=== PATIENT | female | born 1950 ===

== ENCOUNTER 2021-05-13 14:34 | Outpatient (CLI) | payer MEDICARE, MEDICAID ==
[~2021-05-13] VITALS: Ht 157.5 cm; Wt 59.0 kg
[2021-05-13] MEDS ORDERED: MOBIC 7.5MG7.5 MG (15:08)
[2021-05-13] MEDS ORDERED: LIPITOR 40MG TA40 MG (15:08)
[2021-05-13 15:42] VITALS: BP 150/80; PULSE 65; TEMP 98.4
== END 2021-05-13 15:54 | disposition home or self-care (01) ==
LOC: EUO 14:34
DX: M16.12 Unilateral primary osteoarthritis, left hip (principal)
CPT/HCPCS: J0897

== ENCOUNTER 2021-12-09 16:06 | Outpatient (CLI) | payer MEDICARE, MEDICAID ==
[~2021-12-09] VITALS: Ht 157.5 cm; Wt 59.9 kg
[~2021-12-09 16:06] MED LIST: LIPITOR 40MG TA40 MG; MOBIC 7.5MG7.5 MG
[2021-12-09 16:35] VITALS: BP 132/75; PULSE 76; TEMP 98
== END 2021-12-09 17:21 ==
LOC: EUO 16:06
DX: M81.0 Age-related osteoporosis without current pathological fracture (principal)
CPT/HCPCS: J0897